=== PATIENT | female | born 1990 | race Hispanic/Latino ===

== ENCOUNTER 2021-07-31 08:22 | Day surgery (SDC) | payer OTHER ==
[~2021-07-31 08:22] MED LIST: SODIUM CHLORIDE 0.9% 250ML 250 ML ONE
[2021-07-31] MEDS ORDERED: ceFAZolin/Water 2 GM/20 ML 2 GM/20 ML SYRINGE IV NR (09:00)
[2021-07-31] MEDS ORDERED: ROCURONIUM 50 MG/5 ML INJ IV ONE (09:04)
[2021-07-31] MEDS ORDERED: LIDOCAINE MPF (2%) 20 MG/1 ML VIAL 5 ML ONE (09:04)
[2021-07-31] MEDS ORDERED: HYDROmorphone 1 MG/1 ML INJ ONE (09:05)
[2021-07-31] MEDS ORDERED: propofoL 200 MG/20 ML VIAL IV ONE (09:05)
[2021-07-31] MEDS ORDERED: LACTATED RINGERS 1,000 ML ONE ×2 (09:09→11:15)
--- NOTE | 2021-07-31 09:18 | Anesthesia Consultation ---
Anesthesia Consult and Med Hx Date of service: 07/31/21 - Airway Anesthetic Teeth Evaluation: Good ROM Head & Neck: Adequate Mallampati Class: Class III Intubation Access Assessment: Possibly Difficult - Pulmonary Exam CTA: Yes - Cardiac Exam Cardiac Exam: RRR - Pre-Operative Health Status ASA Pre-Surgery Classification: ASA1 Proposed Anesthetic Plan: General - Pulmonary Hx Smoking: No Hx Asthma: No Hx Sleep Apnea: No - Cardiovascular System Hx Hypertension: No Hx Coronary Artery Disease: No - Central Nervous System Hx Neuromuscular Disorder: No (migraines) Hx Seizures: No CVA: No Hx Psychiatric Problems: No - Gastrointestinal Hx Gastroesophageal Reflux Disease: No - Endocrine Hx Renal Disease: No Hx Liver Disease: No Hx Thyroid Disease: No - Other Systems Hx Alcohol Use: Yes (occasional/social ) Hx Substance Use: Yes (remote hx of marijuana use) Hx Cancer: No Hx Obesity: No - Additional Comments Anesthesia Medical History Comments: no hx of anesthetic complications
--- NOTE | 2021-07-31 09:19 | Anesthesia Day of Surgery ---
Anesthesia Day of Surgery - Day of Surgery Patient Examined: Yes Patient H&P Reviewed: Yes Patient is NPO: Yes
[2021-07-31] MEDS ORDERED: BUPIVACAINE/PF (0.25%) 2.5 MG/ML 30 ML VIAL INFILTRATI ONE ×2 (09:25→10:55)
[2021-07-31] MEDS ORDERED: ceFAZolin/Water 2 GM/20 ML 2 GM/20 ML SYRINGE IV ONE (09:51)
--- NOTE | 2021-07-31 09:54 | Short Stay Summary ---
Short Stay Documentation Date of service: 07/31/21 Narrative H&P: Pt is a 31 year old female who presents today with complaint of long standing ovarian mass. Pt was scheduled to have surgery with another MD but it fell through. Pt presents today to have cystectomy and if needed, oopherectomy - History Principal diagnosis: Ovarian mass H&P: obtained from office Past Medical History: No medical history Past Surgical History: No surgical history Social history: single - Allergies and Medications Current Medications: Allergies No Known Allergies Allergy (Verified 07/27/21 15:53) Home Medications Medication Instructions Recorded Confirmed Last Taken Type No Known Home Medications [No 07/27/21 07/27/21 Unknown History Reported Home Medications] Active Medications Hydromorphone HCl (Hydromorphone 0.5 Mg/0.5 Ml Inj) 0.25 mg IV Q10MIN PRN PRN Reason: Pain, Moderate (4-6) Stop: 07/31/21 17:00 Hydromorphone HCl (Hydromorphone 0.5 Mg/0.5 Ml Inj) 0.5 mg IV Q10MIN PRN PRN Reason: Pain , Severe (7-10) Stop: 07/31/21 17:00 Lactated Ringer's (Lactated Ringers) 1,000 mls @ 125 mls/hr IV DIRECT YESSENIA Midazolam HCl (Midazolam 2 Mg/2 Ml Inj) 2 mg IV PREOP NR Stop: 07/31/21 23:59 Ondansetron HCl (Ondansetron 4 Mg/2 Ml Inj) 4 mg IV ONCE PRN PRN Reason: Nausea And Vomiting Stop: 07/31/21 17:00 Scopolamine (Scopolamine Transdermal Patch 72 Hr) 1 each TD PREOP NR Stop: 07/31/21 21:00 - Physical exam General appearance: no acute distress Integumentary: no rash Lungs: Clear to auscultation, Normal air movement Breasts: deferred Heart: Regular rate, Normal S1, Normal S2 Gastrointestinal: normal, normoactive bowel sounds Female Genitourinary: deferred Rectal Exam: deferred - Brief post op/procedure progress note Date of procedure: 07/31/21 Pre-op diagnosis: Ovarian cyst, pelvic pain Post-op diagnosis: same (With endometrial) Procedure: Laparoscopic left salpingo-oophorectomy Anesthesia: GETA Findings: Markedly enlarged left ovary dense adherent to the posterior side of the broad ligament on the left side, normal uterus and right adnexa Surgeon: CURTIS WESTON Estimated blood loss: 50-100ml Pathology: list (Wall of ovary and fallopian tube) Specimen disposition: to lab Condition: stable - Hospital course Hospital course: Unremarkable - Disposition Condition at discharge: Good Disposition: 01 HOME / SELF CARE / HOMELESS Short Stay Discharge Plan Activity: advance as tolerated Weight Bearing Status: Weight Bear as Tolerated Diet: regular Wound: open to air Follow up with: CURTIS WESTON MD [Staff Physician] - 14 Days PRIMARY CARE, [Primary Care Provider] - 14 Days Prescriptions: Ibuprofen [Motrin] 800 mg PO Q8HR PRN #30 tablet PRN Reason: Pain, Moderate (4-6) HYDROcodone/APAP 5-325 [[place] 5/325] 1 each PO Q6HR PRN #20 tablet PRN Reason: Pain
[2021-07-31] MEDS ORDERED: ceFAZolin/STERILE WATER 2 GM/20 ML SYRINGE IV NR (09:55)
[2021-07-31] MEDS ORDERED: LACTATED RINGERS 1,000 ML IV SCH (10:00)
[2021-07-31] MEDS ORDERED: SCOPOLAMINE TRANSDERMAL PATCH 72 HR TD NR (10:00)
[2021-07-31] MEDS ORDERED: MIDAZOLAM 2 MG/2 ML INJ IV NR (10:00)
[2021-07-31] MEDS ORDERED: HYDROmorphone 0.5 MG/0.5 ML INJ IV PRN ×2 (10:00)
[2021-07-31] MEDS ORDERED: ONDANSETRON 4 MG/2 ML INJ IV PRN (10:00)
[2021-07-31] MEDS ORDERED: SODIUM CHLORIDE 0.9% IRRIG SOLN 3000 ML IR ONE (10:54)
[2021-07-31] MEDS ORDERED: dexAMETHasone 20 MG/5 ML VIAL ONE (11:15)
[2021-07-31] MEDS ORDERED: KETOROLAC 30 MG/1 ML INJ ONE (11:15)
[2021-07-31] MEDS ORDERED: ONDANSETRON 4 MG/2 ML INJ ONE (11:15)
[2021-07-31] MEDS ORDERED: NEOSTIGMINE 10MG/10 ML INJ MDV ONE (11:15)
[2021-07-31] MEDS ORDERED: GLYCOPYRROLATE 0.4 MG/2 ML INJ ONE (11:15)
--- NOTE | 2021-07-31 11:43 | Operative Report ---
Operative Report Operative Report: Preoperative diagnosis: 1. Pelvic pain, 2. Ovarian cyst Postoperative diagnosis: Same with endometrioma Procedure: Left laparoscopic salpingectomy/oophorectomy Surgeon: Aziza Mccoy Anesthesia: General EBL: Minimal IV fluids: 1000 mL Urine output: 100 mL Findings: Normal uterus, right tube and ovary, left ovary and tube were grossly enlarged with a 9 cm cyst noted in the left ovary. That cyst was densely adhered to the underside of the broad ligament on the left. Specimens: Left fallopian tube and ovary along with cyst wall Complications: None The patient was properly identified as herself. She was then taken to the OR with IV running and in place. She was given general anesthesia without diff iculty. She was placed in a dorsal lithotomy position. She was then prepped and draped in normal sterile fashion. Attention was turned to the patient's vagina. A Ramirez catheter was inserted into her bladder. The speculum was then placed the patient's vagina. The cervix was visualized and grasped with tenaculum. The acorn cannula was then inserted. The surgeon's gloves were changed and attention turned to the patient's abdomen. A small incision was made in the patient's umbilicus incision a 5 mm trocar was placed. The laparoscope confirmed intra-abdominal placement. The abdomen was insufflated with CO2 gas to approximately 25 mmHg. There was some midline adhesions noted, but these were not taken down. Attention turned to the patient's left lower quadrant. A 10 mm trocar was placed through an incision on the left side. The above findings were noted with a markedly enlarged and densely adherent left ovary to the underside of the broad ligament. Adhesions were lysed to lose the ovary from the underside of the ligament. In the process of doing this, the cyst ruptured for clear fluid. There was also some evidence of old blood consistent with a "chocolate cyst" or endometrioma. Once the ovary was fully detached from underside of the broad ligament the utero-ovarian ligament and the IP were also cauterized and transected. The cyst wall was removed through the lower quadrant trocar. At this point in the procedure the abdomen and pelvis was copiously irrigated. There was excellent hemostasis at the end of this portion of the procedure. Each tube was handed off for pathology. At this point the abdomen was deflated. All instruments were then removed from the abdomen. The incisions were then closed with 4-0 Monocryl. The incisions were also injected with quarter percent Marcaine. The patient tolerated the procedure well she was then awakened and taken recovery in stable condition. Sponge needle and instrument counts were correct 2.
[2021-07-31] MEDS ORDERED: HYDROcodone/ACETAMINOPHEN 5-325 MG TAB PO PRN (12:30)
[2021-07-31 13:30] VITALS: BP 130/82
--- NOTE | 2021-07-31 14:19 | Post Anesthesia Evaluation ---
- Post Anesthesia Evaluation Patient Participated: Yes Airway Patent: Yes Stable Respiratory Function: Yes Nausea/Vomiting: No Temp > 96.8F: Yes Pain Manageable: Yes Adequeate Hydration: Yes Anesthesia Complications: No Block Receding Appropriately: Not Applicable Patient on Ventilator: No
== END 2021-07-31 12:20 | disposition home or self-care (01) ==
LOC: OR 08:22
PROVIDERS: ATTEND Obstetrics & Gynecology
DX: N83.202 Unspecified ovarian cyst, left side (principal); R10.2 Pelvic and perineal pain; N80.1 Endometriosis of ovary; N73.6 Female pelvic peritoneal adhesions (postinfective); Z79.899 Other long term (current) drug therapy; G43.909 Migraine, unspecified, not intractable, without status migrainosus; Z90.49 Acquired absence of other specified parts of digestive tract; Z87.440 Personal history of urinary (tract) infections; Z72.89 Other problems related to lifestyle; Z98.890 Other specified postprocedural states
CPT/HCPCS: 58661; 88307; J0690; J1100; J1170; J1815; J1885; J2250; J2405; J2704; J2710; J3490; J7050; J7120; 88305